=== PATIENT | female | born 1955 | race Caucasian/White ===

== ENCOUNTER 2017-05-08 16:17 | Outpatient (CLI) | payer BC | END 2017-05-08 16:18 | LOC: HPCALD 16:17 | PROVIDERS: ATTEND Physician Assistant | DX: R30.0 Dysuria (principal) | CPT/HCPCS: 87086 ==

== ENCOUNTER 2017-06-10 09:21 | Outpatient (CLI) | payer BC ==
[2017-06-10 10:29] LABS: ALT (SGPT) 13 U/L (8-55); AST (SGOT) 13 U/L (5-34); Alkaline Phosphatase 46 U/L (40-150); Anion Gap 14 mmol/L (10-20); BUN (Urea Nitrogen) 15 mg/dL (9.8-20.1); Bilirubin, Total 0.6 mg/dL (0.2-1.2); Calc. Creatinine Clearance 0 mL/min (70-130); Calcium 9.3 mg/dL (7.8-10.44); Carbon Dioxide 27 mmol/L (23-31); Cardiac Risk 3.4 (Less than 4.5); Chloride 104 mmol/L (98-107); Cholesterol 191 mg/dl (< 200 Desired); Estimated GFR-MDRD 73; Globulin 2.8 g/dL (2.4-3.5); Glucose 86 mg/dL (80-115); HDL Cholesterol 57 mg/dL (>60 Neg Risk); LDL Cholesterol, Calculated 116 mg/dL; Potassium 4.2 mmol/L (3.5-5.1); Protein, Total 6.8 g/dL (6.0-8.3); Sodium 141 mmol/L (136-145); Triglycerides 88 mg/dL (Less than 150)
[2017-06-10 11:32] LABS: #Basophils 0.1 thou/uL (0.0-0.2); #Eosinphils 0.2 thou/uL (0.0-0.7); #Lymphocytes 1.3 thou/uL (1.20-3.40); #Monocytes 0.5 thou/uL (0.11-0.59); #Neutrophils 4.2 thou/uL (1.40-6.50); %Basophils 1.2 % (0.0-1.0); %Eosinophils 2.5 % (0.0-10.0); %Lymphocytes 20.7 % (21.0-51.0); %Monocytes 7.7 % (0.0-10.0); %Neutrophils 67.9 % (42.0-75.0); Hemoglobin 13.8 g/dL (12.0-16.0); Mean Corpuscular HGB CONC 36.1 g/dL (32.0-36.0); Mean Corpuscular Hemoglobin 34.2 pg (27.0-31.0); Mean Corpuscular Volume 94.6 fl (81.0-99.0); Mean Platelet Volume 5.4 fL (7.4-10.4); PLT Morphology Comment Appears Adequate; Platelet Count 218 thou/uL (130-400); RBC Distribution Width 12.2 % (11.5-14.5); RBC Morphology Normal; Red Blood Cell (RBC) Count 4.05 mill/uL (4.20-5.40); White Blood Cell (WBC) Count 6.2 thou/uL (4.8-10.8)
== END 2017-06-10 09:22 | disposition home or self-care (01) ==
LOC: HPCALD 09:21
PROVIDERS: ATTEND Family Medicine
DX: E78.5 Hyperlipidemia, unspecified (principal); I10 Essential (primary) hypertension
CPT/HCPCS: 36415; 80053; 80061; 85025

== ENCOUNTER 2019-02-12 17:41 | Emergency (ER) | payer BC ==
[2019-02-12] MEDS ORDERED: Fluorescein Opthalmic Strip ONE (17:53)
== END 2019-02-12 18:19 | disposition home or self-care (01) ==
LOC: BURERS 17:41
DX: S05.01XA Injury of conjunctiva and corneal abrasion without foreign body, right eye, initial encounter (principal); E78.00 Pure hypercholesterolemia, unspecified; F17.210 Nicotine dependence, cigarettes, uncomplicated; Z79.899 Other long term (current) drug therapy; X58.XXXA Exposure to other specified factors, initial encounter
CPT/HCPCS: 99283

== ENCOUNTER 2019-02-20 18:04 | Emergency (ER) | payer BC ==
[~2019-02-20 18:04] MED LIST: Iopamidol 370 76% 100 ML VIAL ONE
[2019-02-20 18:33] LABS: Clarity Hazy (Clear); Glucose, Urine (Dipstick) Negative (Negative); Leukocyte Negative (Negative); Nitrite Positive (Negative); Protein, Urine (Dipstick) Trace mg/dL (Neg-Trace); Specific Gravity, Urine 1.015 (1.005-1.030); pH, Urine 6.5 (5.0-9.0)
[2019-02-20 18:34] LABS: Bilirubin Small (Negative); Blood, Urine Negative (Negative)
[2019-02-20 18:45] LABS: #Lymphocytes 1.6 thou/uL (1.20-3.40); #Monocytes 0.6 thou/uL (0.11-0.59); #Neutrophils 8.4 thou/uL (1.40-6.50); %Basophils 0.3 % (0.0-1.0); %Eosinophils 0.3 % (0.0-10.0); %Lymphocytes 14.7 % (21.0-51.0); %Monocytes 5.9 % (0.0-10.0); %Neutrophils 78.8 % (42.0-75.0); Hemoglobin 12.9 g/dL (12.0-16.0); Mean Corpuscular HGB CONC 34.3 g/dL (32.0-36.0); Mean Corpuscular Volume 90.3 fL (78.0-98.0); Mean Platelet Volume 5.5 fL (7.4-10.4); Platelet Count 227 thou/uL (130-400); RBC Distribution Width 12.7 % (11.5-14.5); Red Blood Cell (RBC) Count 4.16 mill/uL (4.20-5.40); White Blood Cell (WBC) Count 10.7 thou/uL (4.8-10.8)
[2019-02-20 19:00] LABS: ALT (SGPT) 13 U/L (8-55); AST (SGOT) 11 U/L (5-34); Alkaline Phosphatase 53 U/L (40-150); Anion Gap 17 mmol/L (10-20); BUN (Urea Nitrogen) 14 mg/dL (9.8-20.1); Bilirubin, Total 0.9 mg/dL (0.2-1.2); Calc. Creatinine Clearance 0 mL/min (70-130); Calcium 9.4 mg/dL (7.8-10.44); Carbon Dioxide 23 mmol/L (23-31); Chloride 102 mmol/L (98-107); Estimated GFR-MDRD 59; Globulin 3.5 g/dL (2.4-3.5); Glucose 89 mg/dL (80-115); Potassium 3.9 mmol/L (3.5-5.1); Protein, Total 7.5 g/dL (6.0-8.3); Sodium 138 mmol/L (136-145)
[2019-02-20 19:02] LABS: Bacteria/HPF 1+ HPF (None Seen); RBC/HPF 0-3 HPF (0-3); Transitional Epithelial 0-3 HPF (0-3); WBC/HPF 0-3 HPF (0-3)
[2019-02-20 19:15] LABS: Thyroid Stimulating Hormone 0.9098 uIU/mL (0.35-4.94)
[2019-02-20] MEDS ORDERED: Acetaminophen 500 MG TAB ONE (19:57)
[2019-02-20] MEDS ORDERED: Azithromycin 500 MG VIAL ONE (20:45)
--- NOTE | 2019-02-20 22:11 | RAD ---
CHEST TWO VIEWS: Date: 02-20-19 Comparison: 02-11-19 from [facility]. FINDINGS: Chronic parenchymal changes are seen in the lungs on the left side. There is a vague rounded nodular density in the lingular region. A new infiltrate is present in the right lower lobe that was not pres ent before, indicating a developing pneumonia. While some mass like areas were seen on the CT, it is more difficult to appreciate that on this plain film. The patient needs to be treated to resolution o f symptoms and then probably another CT done. IMPRESSION: 1. New right lower lobe infiltrate. 2. Chronic changes, particularly in the left lung. See CT report to follow. POS: HOME
[2019-02-20] MEDS ORDERED: Ondansetron PF 4 MG/2 ML Vial ONE (22:47)
--- NOTE | 2019-02-20 23:04 | CT ---
CT ANGIO OF THE CHEST WITH CONTRAST: Date: 02-20-19 Comparison: None. Technique: Axial slices were acquired then constructions in various planes were obtained through the pulmonary arteries. FINDINGS: There is good opacification of the pulmonary arteries. There was no convincing findings of pulmonary embolism. The arteries seem well opacified throughout. The aorta showed no signs of dissection or ane urysm. There appears to be adenopathy in each hilum but particularly the right. There is a right lower lobe infiltrate consistent with pneumonia but there is at least one rather rounded mass-like area that lico sures about 2.5 cm in size just below the right hilum. I cannot tell if this is adenopathy, mass, or consolidated lung. This requires further investigation. There is a 2.4 cm ovoid nodular density in th e lingula on scan 77. One can see this on plain radiograph on the 02-11-19 chest x-ray. It is not cindi r if this was present on the 12-24-10 chest x-ray or not. There was certainly evidence of lingular scar ring then. Areas of irregular pleural thickening are seen in the chest bilaterally but more prominent ly on the left. These appear chronic in nature. Coronary artery calcifications are present, especially in the left coronary system. There is no sign of significant pericardial effusion. Some of the breast tissue in the right breast is asymmetrical. On some of the oblique views it looks almost nodular. It does not look quite this way on the axials. If a mammogram has not been done in re cent times, I would recommended electively doing so. There are few hypodensities in each lobe of the thyroid, particularly to the left. These are generall y no more than a cm in size. I cannot rule out mass or small cysts. This also needs elective evaluati on. Scans into the upper abdomen showed no sign of adrenal mass. The visible portions of the liver, splee n, and pancreas show no definite acute findings. IMPRESSION: 1. No evidence of pulmonary embolism. 2. Small thyroid nodules or cysts. Elective ultrasound to investigate recommended. 3. Parenchymal asymmetry in the right breast. An elective mammogram or ultrasound should be done to b e sure there is no pathology here. 4. Right lower lobe pneumonia which starts at the hilum and goes outward. 5. Hilar adenopathy bilaterally but particularly on the right. There is also a rounded mass-like dens ity just below the right hilum. I cannot tell if this is part of an infectious process, adenopathy, o r an actual mass. Further follow up is required. I would suggest initially treating the patient for p neumonia and after substantial improvement and treatment has occurred and treatment is at its endpoin t, consider repeating a CT scan to see what this mass-like density is doing. I feel referral to a pul applications support engineer at some point would be prudent. 6. Chronic pleural thickening, particularly on the left. 7. Some nodular densities, especially in the left lung, along with chronic parenchymal changes, parti cularly in the lingula. An ovoid nodule in the lingula may not be new but this is difficult to be cer tain about. This also would bear another look on follow up CT scan. Findings discussed with Dr. Wang at 2035 on 02-20-19. POS: HOME
[2019-02-21 12:26] LABS: HIV (1/2) Antibody/Antigen Non-Reactive (NonReactive); HIV 1/2 INDEX 0.17 S/CO (<1.00)
== END 2019-02-20 23:09 | disposition home or self-care (01) ==
LOC: BURERS 18:04
DX: J18.9 Pneumonia, unspecified organism (principal); E78.00 Pure hypercholesterolemia, unspecified; F17.210 Nicotine dependence, cigarettes, uncomplicated; Z79.899 Other long term (current) drug therapy
CPT/HCPCS: 71046; 71275; 80053; 81003; 81015; 83605; 83880; 84443; 84484; 85025; 85379; 87040; 87077; 87086; 87186; 87389; 87804; 93005; 96361; 96365; 96366; 96367; 96375; J0456; J1956; J2405; Q9967

== ENCOUNTER 2019-02-23 10:34 | Outpatient (CLI) | payer BC ==
--- NOTE | 2019-02-24 08:12 | ULT ---
THYROID ULTRASOUND: 02/23/19 Ultrasonography of the thyroid gland was done in response to a recent CT suggesting thyroid nodules. The thyroid gland is enlarged. The right lobe measures 5.1 x 1.3 x 1.6 cm. There are at least two sma ll hypoechoic nodules. One is in the middle third of the gland and measures 7 x 4 x 5 mm. Another is in the lower pole measuring 4 x 3 x 4 mm. The left lobe is also somewhat large measuring 5.0 x 1.7 x 1.6 cm. Very small hypoechoic nodules are seen in the upper mid and lower portions of the lobe. The one in the upper part measures 4 x 3 x 3 mm, mid portion 3 x 3 x 4 mm, lower portion 3 x 2 x 5 mm. IMPRESSION: Thyroid enlargement with several small subcentimeter nodules in each lobe, none of which are larger t holman 7 mm in size. Statistically, this is most likely a case of a multinodular goiter. POS: HOME
== END 2019-02-23 10:35 | disposition home or self-care (01) ==
LOC: BURULT 10:34
PROVIDERS: ATTEND Family Medicine
DX: E04.2 Nontoxic multinodular goiter (principal)
CPT/HCPCS: 76536

== ENCOUNTER 2019-03-06 06:46 | Emergency (ER) | payer BC ==
[2019-03-06] MEDS ORDERED: valACYclovir 500 MG TAB ONE (07:19)
[2019-03-06] MEDS ORDERED: predniSONE 20 MG TAB ONE (07:19)
== END 2019-03-06 07:28 | disposition home or self-care (01) ==
LOC: BURERS 06:46
DX: G51.0 Bell's palsy (principal); E78.00 Pure hypercholesterolemia, unspecified; F17.210 Nicotine dependence, cigarettes, uncomplicated
CPT/HCPCS: 99283; J7512

== ENCOUNTER 2019-05-31 19:36 | Emergency (ER) | payer BC ==
[2019-05-31] MEDS ORDERED: Acetaminophen 500 MG TAB ONE (20:16)
[2019-05-31 20:26] LABS: #Basophils 0.1 thou/uL (0.0-0.2); #Eosinphils 0.1 thou/uL (0.0-0.7); #Lymphocytes 0.6 thou/uL (1.20-3.40); #Monocytes 0.3 thou/uL (0.11-0.59); #Neutrophils 10.8 thou/uL (1.40-6.50); %Basophils 0.5 % (0.0-1.0); %Eosinophils 0.6 % (0.0-10.0); %Lymphocytes 5.1 % (21.0-51.0); %Monocytes 2.2 % (0.0-10.0); %Neutrophils 91.6 % (42.0-75.0); Hemoglobin 12.1 g/dL (12.0-16.0); Mean Corpuscular HGB CONC 33.7 g/dL (32.0-36.0); Mean Corpuscular Hemoglobin 31.6 pg (27.0-31.0); Mean Corpuscular Volume 93.9 fL (78.0-98.0); Mean Platelet Volume 5.5 fL (7.4-10.4); Platelet Count 155 thou/uL (130-400); RBC Distribution Width 12.5 % (11.5-14.5); Red Blood Cell (RBC) Count 3.81 mill/uL (4.20-5.40); White Blood Cell (WBC) Count 11.8 thou/uL (4.8-10.8)
[2019-05-31 20:32] LABS: Clarity Hazy (Clear); Leukocyte Unable to Interpret (Negative); Nitrite Unable to Interpret (Negative)
[2019-05-31 20:33] LABS: Bilirubin Unable to Interpret (Negative); Blood, Urine Unable to Interpret (Negative); Glucose, Urine (Dipstick) Unable to Interpret mg/dL (Negative); Protein, Urine (Dipstick) Unable to Interpret mg/dL (Neg-Trace); Urobilinogen UNABLE TO INTERPRET mg/dL (Less than 2)
[2019-05-31 20:37] LABS: Bacteria/HPF 3+ HPF (None Seen); Squamous Epithelial 0-3 HPF (0-3); WBC/HPF 0-3 HPF (0-3)
[2019-05-31 20:37] LABS: ALT (SGPT) 9 U/L (8-55); AST (SGOT) 14 U/L (5-34); Albumin 3.7 g/dL (3.4-4.8); Alkaline Phosphatase 40 U/L (40-150); Anion Gap 12 mmol/L (10-20); BUN (Urea Nitrogen) 12 mg/dL (9.8-20.1); Bilirubin, Total 0.6 mg/dL (0.2-1.2); Calc. Creatinine Clearance 0 mL/min (70-130); Calcium 8.9 mg/dL (7.8-10.44); Carbon Dioxide 26 mmol/L (23-31); Chloride 103 mmol/L (98-107); Estimated GFR-MDRD 73; Globulin 2.6 g/dL (2.4-3.5); Glucose 98 mg/dL (80-115); Potassium 3.6 mmol/L (3.5-5.1); Protein, Total 6.3 g/dL (6.0-8.3); Sodium 137 mmol/L (136-145)
--- NOTE | 2019-05-31 23:29 | RAD ---
PORTABLE CHEST: 05/31/2019 COMPARISON: Chest film from 02/20/2019. FINDINGS: Heart size is stable. There is no congestive change or large pleural effusion. Haziness in the righ t base, near the cardiophrenic angle, seems little different than before. Some lingular haziness is also about the same as on the prior study. No new infiltrates are seen IMPRESSION: Little change since January. POS: HOME
== END 2019-05-31 22:35 | disposition home or self-care (01) ==
LOC: BURERS 19:36
DX: N39.0 Urinary tract infection, site not specified (principal); E78.00 Pure hypercholesterolemia, unspecified; F17.210 Nicotine dependence, cigarettes, uncomplicated; Z79.899 Other long term (current) drug therapy
CPT/HCPCS: 51702; 71045; 80053; 81003; 81015; 83605; 85025; 87040; 87077; 87086; 87186; 96361; 96365; 96366; J1956

== ENCOUNTER 2019-06-01 09:34 | Emergency (ER) | payer BC | END 2019-06-01 11:26 | disposition home or self-care (01) | LOC: BURERS 09:34 | DX: N81.10 Cystocele, unspecified (principal); F17.210 Nicotine dependence, cigarettes, uncomplicated; E78.00 Pure hypercholesterolemia, unspecified; Z79.899 Other long term (current) drug therapy | CPT/HCPCS: 99283 ==

== ENCOUNTER 2021-02-09 16:04 | Emergency (ER) | payer MEDICARE ==
[2021-02-10 20:38] LABS: SARS-CoV-2 PCR by NAA Not Detected (NotDetected)
== END 2021-02-09 16:41 | disposition home or self-care (01) ==
LOC: BURERS 16:04
DX: R50.9 Fever, unspecified (principal); Z20.822 Contact with and (suspected) exposure to COVID-19; R05 Cough; E78.5 Hyperlipidemia, unspecified; E78.00 Pure hypercholesterolemia, unspecified; E78.1 Pure hyperglyceridemia; F17.210 Nicotine dependence, cigarettes, uncomplicated; Z79.899 Other long term (current) drug therapy
CPT/HCPCS: U0003; U0005; 87635; 99283

== ENCOUNTER 2022-06-25 10:59 | Emergency (ER) | payer MEDICARE ==
[2022-06-25] MEDS ORDERED: Diltiazem 125 MG/25 ML ONE (11:35)
[2022-06-25 11:36] LABS: #Basophils 0.1 thou/uL (0.0-0.2); #Eosinphils 0.2 thou/uL (0.0-0.7); #Monocytes 0.5 thou/uL (0.11-0.59); %Basophils 1.1 % (0.0-1.0); %Eosinophils 2.7 % (0.0-10.0); %Lymphocytes 26.3 % (21.0-51.0); %Monocytes 5.8 % (0.0-10.0); %Neutrophils 64.1 % (42.0-75.0); Hemoglobin 15.6 g/dL (12.0-16.0); Mean Corpuscular HGB CONC 34.1 g/dL (32.0-36.0); Mean Corpuscular Hemoglobin 31.5 pg (27.0-31.0); Mean Corpuscular Volume 92.5 fL (78.0-98.0); Mean Platelet Volume 5.2 fL (7.4-10.4); Platelet Count 228 thou/uL (130-400); RBC Distribution Width 12.4 % (11.5-14.5); Red Blood Cell (RBC) Count 4.96 mill/uL (4.20-5.40); White Blood Cell (WBC) Count 7.7 thou/uL (4.8-10.8)
[2022-06-25] MEDS ORDERED: Enoxaparin Sodium 100 MG/ML SYRINGE ONE (11:41)
[2022-06-25 11:50] LABS: ALT (SGPT) 18 U/L (8-55); AST (SGOT) 15 U/L (5-34); Albumin 4.1 g/dL (3.4-4.8); Alkaline Phosphatase 58 U/L (40-110); Anion Gap 15 mmol/L (10-20); BUN (Urea Nitrogen) 12 mg/dL (9.8-20.1); Bilirubin, Total 0.6 mg/dL (0.2-1.2); Calc. Creatinine Clearance 0 mL/min (70-130); Calcium 9.2 mg/dL (7.8-10.44); Carbon Dioxide 26 mmol/L (23-31); Chloride 103 mmol/L (98-107); Estimated GFR 78; Glucose 100 mg/dL (80-115); Potassium 3.8 mmol/L (3.5-5.1); Protein, Total 7.1 g/dL (5.8-8.1); Sodium 140 mmol/L (136-145)
== END 2022-06-25 14:03 | disposition short-term general hospital (02) ==
LOC: BURERS 10:59
DX: I48.91 Unspecified atrial fibrillation (principal); E78.2 Mixed hyperlipidemia; F17.210 Nicotine dependence, cigarettes, uncomplicated; Z79.899 Other long term (current) drug therapy
CPT/HCPCS: 71045; 80053; 83880; 84484; 85025; 93005; 96365; 96366; 96372; J1650

== ENCOUNTER 2022-09-25 08:51 | Outpatient (CLI) | payer MEDICARE | END 2022-09-25 08:52 | disposition home or self-care (01) | LOC: BURCT 08:51 | PROVIDERS: ATTEND Family Medicine | DX: G44.52 New daily persistent headache (NDPH) (principal) | CPT/HCPCS: 70450 ==

== ENCOUNTER 2022-12-11 12:31 | Emergency (ER) | payer MEDICARE ==
[2022-12-11 13:22] LABS: #Eosinphils 0.2 thou/uL (0.0-0.7); #Lymphocytes 1.8 thou/uL (1.20-3.40); #Monocytes 0.5 thou/uL (0.11-0.59); #Neutrophils 7.3 thou/uL (1.40-6.50); %Basophils 0.4 % (0.0-1.0); %Lymphocytes 18.5 % (21.0-51.0); %Monocytes 4.6 % (0.0-10.0); %Neutrophils 74.5 % (42.0-75.0); Hemoglobin 12.8 g/dL (12.0-16.0); Mean Corpuscular HGB CONC 34.8 g/dL (32.0-36.0); Mean Corpuscular Hemoglobin 32.5 pg (27.0-31.0); Mean Corpuscular Volume 93.2 fl (78.0-98.0); Mean Platelet Volume 5.6 fL (7.4-10.4); Platelet Count 229 10x3/uL (130-400); RBC Distribution Width 12.1 % (11.5-14.5); Red Blood Cell (RBC) Count 3.95 mill/uL (4.20-5.40); White Blood Cell (WBC) Count 9.9 10x3/uL (4.8-10.8)
[2022-12-11 13:46] LABS: ALT (SGPT) 15 U/L (8-55); AST (SGOT) 10 U/L (5-34); Alkaline Phosphatase 54 U/L (40-110); Anion Gap 12 mmol/L (10-20); BUN (Urea Nitrogen) 12 mg/dL (9.8-20.1); Bilirubin, Total 0.4 mg/dL (0.2-1.2); Calc. Creatinine Clearance 0 mL/min (70-130); Carbon Dioxide 27 mmol/L (23-31); Chloride 104 mmol/L (98-107); Estimated GFR 81; Glucose 93 mg/dL (80-115); Lipase 22 U/L (8-78); Potassium 4.2 mmol/L (3.5-5.1); Sodium 139 mmol/L (136-145)
[2022-12-11 14:45] LABS: Bilirubin Negative (Negative); Blood, Urine Trace (Negative); Clarity Clear (Clear); Glucose, Urine (Dipstick) Negative (Negative); Ketone, Urine Negative (Negative); Leukocyte Moderate (Negative); Nitrite Negative (Negative); Protein, Urine (Dipstick) Negative (Neg-Trace); Urobilinogen 0.2 mg/dL (Less than 2); pH, Urine 6.5 (5.0-9.0)
[2022-12-11 15:00] LABS: Bacteria/HPF Rare-Few HPF (None Seen)
[2022-12-11] MEDS ORDERED: Cephalexin 250 MG CAP ONE (15:12)
== END 2022-12-11 15:16 | disposition home or self-care (01) ==
LOC: BURERS 12:31
DX: N10 Acute pyelonephritis (principal); I48.91 Unspecified atrial fibrillation; I10 Essential (primary) hypertension; F17.210 Nicotine dependence, cigarettes, uncomplicated; E78.5 Hyperlipidemia, unspecified; Z79.899 Other long term (current) drug therapy; Z79.01 Long term (current) use of anticoagulants
CPT/HCPCS: 36415; 74176; 80053; 81003; 81015; 83690; 85025; 87086

== ENCOUNTER 2024-08-11 08:57 | Outpatient (CLI) | payer MEDICARE ==
[2024-08-11] MEDS ORDERED: Iopamidol 370 76% 100 ML VIAL ONE (11:08)
== END 2024-08-11 08:58 | disposition home or self-care (01) ==
LOC: BURCT 08:57
PROVIDERS: ATTEND Family Medicine
DX: R91.8 Other nonspecific abnormal finding of lung field (principal)
CPT/HCPCS: 71260; Q9967

== ENCOUNTER 2025-09-14 10:28 | Emergency (ER) | payer MEDICARE ==
[2025-09-14 10:49] LABS: #Basophils 0.1 thou/uL (0.0-0.2); #Eosinophils 0.1 thou/uL (0.0-0.7); #Lymphocytes 1.7 thou/uL (1.20-3.40); #Monocytes 0.6 thou/uL (0.11-0.59); #Neutrophils 5.9 thou/uL (1.40-6.50); %Basophils 0.9 % (0.0-1.0); %Eosinophils 1.6 % (0.0-10.0); %Lymphocytes 20.2 % (21.0-51.0); %Monocytes 6.8 % (0.0-10.0); %Neutrophils 70.6 % (42.0-75.0); Hematocrit 38.9 % (36.0-47.0); Hemoglobin 12.5 g/dL (12.0-16.0); Mean Corpuscular Hemoglobin 29.6 pg (27.0-31.0); Mean Corpuscular Volume 92.0 fl (78.0-98.0); Platelet Count 293 10x3/uL (130-400); Red Blood Cell (RBC) Count 4.23 mill/uL (4.20-5.40); White Blood Cell (WBC) Count 8.3 10x3/uL (4.8-10.8)
[2025-09-14 11:07] LABS: ALT (SGPT) 7 U/L (Less than 34); AST (SGOT) 14 U/L (11-34); Albumin 3.3 g/dL (3.1-4.5); Alkaline Phosphatase 60 U/L (40-110); Anion Gap 17 mmol/L (10-20); BUN (Urea Nitrogen) 14 mg/dL (9.8-20.1); Bilirubin, Total 0.3 mg/dL (0.3-1.2); Calc. Creatinine Clearance 0 mL/min (70-130); Calcium 9.3 mg/dL (7.8-10.44); Carbon Dioxide 26 mmol/L (23-31); Chloride 97 mmol/L (98-107); Globulin 3.8 g/dL (2.4-3.5); Glucose 94 mg/dL (80-115); Potassium 4.1 mmol/L (3.5-5.1); Sodium 136 mmol/L (136-145); Troponin I 0.019 ng/mL (< 0.028)
[2025-09-14] MEDS ORDERED: Aspirin Chewable 81 MG TAB ONE (11:18)
== END 2025-09-14 13:15 | disposition home or self-care (01) ==
LOC: BURERS 10:28
DX: R07.9 Chest pain, unspecified (principal); I48.91 Unspecified atrial fibrillation; E78.5 Hyperlipidemia, unspecified; I10 Essential (primary) hypertension; F17.210 Nicotine dependence, cigarettes, uncomplicated; Z79.01 Long term (current) use of anticoagulants; Z79.899 Other long term (current) drug therapy
CPT/HCPCS: 71045; 80053; 83880; 84484; 85025; 93005